=== PATIENT | male | born 1980 | race African-American/Black ===

== ENCOUNTER 2020-02-01 21:08 | Emergency (ER) | payer SELFPAY ==
[2020-02-01] MEDS ORDERED: Ketorolac 30 MG/ML SDV IM ONE (21:47)
[2020-02-01] MEDS ORDERED: Cyclobenzaprine 10 MG Tab PO ONE (21:47)
--- NOTE | 2020-02-01 21:51 | EDM.PDOC ---
ED HPI GENERAL MEDICAL PROBLEM - General Chief Complaint: Back Pain or Injury Stated Complaint: SIDE/HIP PAIN Time Seen by Provider: 02/01/20 21:11 Source of Information: Reports: Patient History Limitations: Reports: No Limitations - History of Present Illness INITIAL COMMENTS - FREE TEXT/NARRATIVE: Patient is a 39 year old male who complains of 7 day history of sharp back pain in the left lateral lower back and left hip. Has history of similar back problems. Exacerbating factors: movement. Alleviating factors: none. Radiation: left leg in sciatic distribution. Otherwise: (-) fever (-) recent trauma (-) weight loss (-) incontinence (-) bowel/bladder dysfunction (-) saddle anesthesia (-) history of cancer (-) weakness (-) paresthesias (-) immune compromise (-) recent back surgery or instrumentation. Has history of back surgery 14 years ago secondary to herniated disc. Went to chiropractor yesterday and had some relief after acupuncture, but pain returned today. Pt has been taking Tylenol. Is not on narcotics. REVIEW OF SYSTEMS: Other than the symptoms associated with the present events, the following is reported with regard to recent health: General: (-) fever. HENT: (-) congestion. Respiratory: (-) cough. Cardiovascular: (-) chest pain. GI: (-) abdominal pain. : (-) urinary complaints. Musculoskeletal: (-) other aches or pains. Endocrine: (-) generalized weakness. Neurological: (-) localized weakness. Skin: (-) rash PAST MEDICAL HISTORY: reviewed as per nursing notes SOCIAL HISTORY: reviewed as per nursing notes, MEDICATIONS: Per nurse's note ALLERGIES: Per nurse's note, reviewed by me PHYSICAL EXAMINATION: GENERALIZED APPEARANCE: well developed well nourished in mild to moderate painful distress sitting down. Pt ambulatory in ED VITAL SIGNS: Per nurse's note, reviewed by me SKIN: Warm, dry; (-) cyanosis; (-) rash. HEAD: (-) scalp swelling, EYES: (-) conjunctival pallor, (-) scleral icterus. ENMT: ; airway patent: (-) stridor; mucous membranes moist. NECK: supple (-) stiffness, CHEST AND RESPIRATORY: (-) rales, (-) rhonchi, (-) wheezes; breath sounds equal bilaterally. HEART AND CARDIOVASCULAR: (-) irregularity; (-) murmur, (-) gallop. ABDOMEN AND GI: Soft; (-) tenderness BACK: (-) scars (-)gross kyphosis (-) gross scoliosis. (-) step off or deformity (-) direct vertebral tenderness (+) left LS paravertebral tenderness ( +)left SI tenderness (+)left trochanteric tenderness. (+) able to flex, extend and lateral bend. EXTREMITIES: (-) deformity, (-) edema. 5/5+ strength LE bilaterally. 2+ DP. cap refill < 2 seconds. Good tone. (-) atrophy NEURO AND PSYCH: Awake, alert. Cranial nerves grossly intact; strength symmetric. sensation to thigh, lateral foot and 1st toe intact and equal bilaterally. 2+ DTR bilaterally. Gait steady . DIAGNOSTICS: EMERGENCY DEPARTMENT COURSE AND TREATMENT: Patient's condition remained stable during Emergency Department evaluation. Based on my history, physical exam, and diagnostic evaluation, the patient appears to have symptoms consistent with low risk back pain. There are no high risk signs or symptoms, no history of intravenous drug abuse, no history of cancer, no weakness, and no history of bowel or bladder incontinence. Vital signs show normal heart rate, BP, and oxygen saturation on room air and the patient has a normal neurologic exam. This is most likely a myofascial pain. The patient was able to ambulate in the ED without difficulty. Discharge precautions were given with instructions to return if increasing pain, weakness, fevers, or new symptoms. I encouraged follow-up with their primary care physician for repeat exam in 1-2 days. PLAN AND FOLLOW-UP: Patient received written and verbal instructions regarding this condition. Return to ED immediately with any new or worsening symptoms. Follow up to be arranged by patient with pcp in 1-2 days for further evaluation. Given discharge precautions. Patient expressed verbal understanding. Lower Back Pain Score (Numeric/FACES): 10 - Related Data Allergies Allergy/AdvReac Type Severity Reaction Status Date / Time No Known Allergies Allergy Verified 02/01/20 21:24 Home Meds: Home Meds Acetaminophen/oxyCODONE [Percocet 325-5 MG] 1 each PO Q6HR #10 tab 02/01/20 [Rx] Cyclobenzaprine [Flexeril] 10 mg PO TID #20 tab 02/01/20 [Rx] Ibuprofen [Motrin] 600 mg PO Q6H PRN #20 tab 02/01/20 [Rx] Lidocaine 5% [Lidoderm 5%] 1 patch TOP DAILY 6 Days #6 patch 02/01/20 [Rx] Past Medical History Musculoskeletal History: Reports: Back Pain, Chronic Endocrine/Metabolic History: Reports: Other (See Below) Other Endocrine/Metabolic History: borderline diabetic - Past Surgical History Musculoskeletal Surgical History: Reports: Other (See Below) Other Musculoskeletal Surgeries/Procedures:: back surgery for hernaited disc/ pinched nerves- unsure of what level Social & Family History - Family History Family Medical History: Noncontributory - Tobacco Use Smoking Status *Q: Never Smoker Second Hand Smoke Exposure: No - Recreational Drug Use Recreational Drug Use: No ED ROS GENERAL - Review of Systems Review Of Systems: See Below (see dictation) ED EXAM, GENERAL - Physical Exam Exam: See Below (see dictation) Course - Vital Signs Last Recorded V/S: Last Vital Signs Temp 97.8 F 02/01/20 21:14 Pulse 84 02/01/20 21:14 Resp 16 02/01/20 21:14 BP 126/66 02/01/20 21:14 Pulse Ox 96 02/01/20 21:14 - Orders/Labs/Meds Meds: Medications Discontinued Medications Generic Name Dose Route Start Last Admin Trade Name Freq PRN Reason Stop Dose Admin Cyclobenzaprine HCl 10 mg 02/01/20 21:47 02/01/20 21:52 Flexeril PO 02/01/20 21:48 10 mg ONETIME ONE Administration Ketorolac Tromethamine 30 mg 02/01/20 21:47 02/01/20 21:52 Toradol IM 02/01/20 21:48 30 mg ONETIME ONE Administration Departure - Departure Time of Disposition: 21:48 Disposition: Home, Self-Care 01 Condition: Good Clinical Impression: Back pain, Sciatica - Discharge Information *PRESCRIPTION DRUG MONITORING PROGRAM REVIEWED*: Not Applicable *COPY OF PRESCRIPTION DRUG MONITORING REPORT IN PATIENT JEF: Not Applicable Prescriptions: Acetaminophen/oxyCODONE [Percocet 325-5 MG] 1 each PO Q6HR #10 tab Cyclobenzaprine [Flexeril] 10 mg PO TID #20 tab Ibuprofen [Motrin] 600 mg PO Q6H PRN #20 tab PRN Reason: Pain Instructions: Acute Back Pain, Adult, Sciatica, [id number] Referrals: PCP,None [Primary Care Provider] - Lisa Gonzalez [Ordering Only Provider] - Forms: ED Department Discharge Additional Instructions: The following information is given to patients seen in the emergency department who are being discharged to home. This information is to outline your options for follow-up care. We provide all patients seen in our emergency department with a follow-up referral. The need for follow-up, as well as the timing and circumstances, are variable depending upon the specifics of your emergency department visit. If you don't have a primary care physician on staff, we will provide you with a referral. We always advise you to contact your personal physician following an emergency department visit to inform them of the circumstance of the visit and for follow-up with them and/or the need for any referrals to a consulting specialist. The emergency department will also refer you to a specialist when appropriate. This referral assures that you have the opportunity for follow-up care with a specialist. All of these measure are taken in an effort to provide you with optimal care, which includes your follow-up. Under all circumstances we always encourage you to contact your private physician who remains a resource for coordinating your care. When calling for follow-up care, please make the office aware that this follow-up is from your recent emergency room visit. If for any reason you are refused follow-up, please contact the [facility] Emergency Department at and asked to speak to the emergency department charge nurse. Sepsis Event Note - Evaluation Sepsis Screening Result: No Definite Risk - Focused Exam Vital Signs: Vital Signs Temp Pulse Resp BP Pulse Ox 02/01/20 21:14 97.8 F 84 16 126/66 96 Date Exam was Performed: 02/01/20 Time Exam was Performed: 21:53
== END 2020-02-01 22:14 | disposition home or self-care (01) ==
LOC: MW.ED 21:08
DX: M54.42 Lumbago with sciatica, left side (principal)
CPT/HCPCS: 96372; 99283; A9270; J1885

== ENCOUNTER 2020-02-05 21:36 | Emergency (ER) | payer SELFPAY ==
[2020-02-05] MEDS ORDERED: Ketorolac 30 MG/ML SDV IM ONE (21:58)
--- NOTE | 2020-02-05 23:07 | CT ---
INDICATION: Nontraumatic back pain with left-sided leg pain. COMPARISON: None available TECHNIQUE: CT examination of the lumbar spine is performed with spiral technique without contrast. 2 millimeter thick axial, sagittal and coronal reconstructions were made. Please note that all CT scans at this facility use dose modulation, iterative reconstruction, and/or weight-based dosing when appropriate to reduce radiation dose to as low as reasonably achievable. FINDINGS: : There is minimal scoliosis of the inferior lumbar spine convex towards the left. The vertebral bodies are normal in height and they are in anatomic alignment. There is no sign of fracture or subluxation. There is decreased AP canal diameter from L2 through L5, representing mild congenital narrowing, predisposing the patient to spinal stenosis from degenerative disease. T12-L1: Normal. L1-2: Normal. L2-3: Severe spinal stenosis produced by a moderate left paramedian disc bulge with posterior osteophytic ridging, resulting in prominent stenosis of the left lateral recess. There is probably compression of the left L3 nerve root in the lateral recess. Moderate left lateral disc bulging into the neural foramen, with posterior osteophytic ridging. This impinges upon the left L2 nerve root, but does not appear to compress the nerve root. Mild right lateral disc bulging into the neural foramina, without contact with the exiting nerve root. Moderate loss of disc height from disc degenerative disease. L3-4: Moderate spinal stenosis from mild diffuse disc bulging superimposed upon congenital narrowing. Moderate left and mild right lateral disc bulging into the neural foramina, without contact with the exiting nerve roots. L4-5: Severe spinal stenosis from congenital narrowing, moderate diffuse disc bulging, and mild ligamentum flavum hypertrophy. Moderate right lateral disc bulging into the neural foramina impinges upon the right L4 nerve root, without compression of the nerve root. Mild left lateral disc bulging into the neural foramina without impingement upon the exiting nerve root. Moderate disc degenerative disease. L5-S1: Moderate left lateral disc bulge with posterior osteophytic ridging, impinging upon the left S1 nerve root in the lateral recess, but without displacement or compression of the nerve root. Severe foraminal stenosis on the left from a combination of moderate lateral disc bulging, posterior osteophytic ridging, and left facet hypertrophy, appearing to efface the fat from around the left L5 nerve root. Mild right lateral disc bulging into the neural foramina with posterior osteophytic ridging, without contact with the exiting nerve root. Mild left facet arthropathy. The visualized abdominal viscera is normal in appearance. 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 IMPRESSION: Severe spinal stenosis at L2-3 from a moderate left paramedian disc bulge and posterior osteophytic ridging. Probable compression of the left L3 nerve root in the lateral recess. Severe spinal stenosis at L4-5. There appears to be prominent compression of the left L5 nerve root in the neural foramina as described above. Moderate spinal stenosis at L3-4. Lateral disc bulging into the neural foramina on the left at L2-3 and on the right at L4-5, coming into contact with the exiting nerve roots. Please note that all CT scans at this facility use dose modulation, iterative reconstruction, and/or weight-based dosing when appropriate to reduce radiation dose to as low as reasonably achievable. Dictated by Ismael Buitrago MD @ Feb 05 2020 10:53PM Signed by Dr. Ismael Buitrago @ Feb 05 2020 11:06PM
--- NOTE | 2020-02-06 00:15 | EDM.PDOC ---
ED HPI GENERAL MEDICAL PROBLEM - General Chief Complaint: Lower Extremity Injury/Pain Stated Complaint: LEG PAIN Time Seen by Provider: 02/05/20 21:46 Source of Information: Reports: Patient History Limitations: Reports: No Limitations - History of Present Illness INITIAL COMMENTS - FREE TEXT/NARRATIVE: Patient states he has numbness to the left leg and pain in the lower back. This is getting worse. Patient denies trauma Onset: Today Duration: Chronic Location: Reports: Back, Lower Extremity, Left Quality: Reports: Ache Severity: Mild Improves with: Reports: None Worsens with: Reports: None Associated Symptoms: Reports: No Other Symptoms left hip Pain Score (Numeric/FACES): 10 - Related Data Allergies Allergy/AdvReac Type Severity Reaction Status Date / Time No Known Allergies Allergy Verified 02/05/20 21:43 Home Meds: Home Meds Acetaminophen/oxyCODONE [Percocet 325-5 MG] 1 each PO Q6HR #10 tab 02/01/20 [Rx] Cyclobenzaprine [Flexeril] 10 mg PO TID #20 tab 02/01/20 [Rx] Ibuprofen [Motrin] 600 mg PO Q6H PRN #20 tab 02/01/20 [Rx] Lidocaine 5% [Lidoderm 5%] 1 patch TOP DAILY 6 Days #6 patch 02/01/20 [Rx] Past Medical History HEENT History: Reports: None Cardiovascular History: Reports: None Respiratory History: Reports: None Gastrointestinal History: Reports: None Genitourinary History: Reports: None Musculoskeletal History: Reports: Back Pain, Chronic Neurological History: Reports: None Psychiatric History: Reports: None Endocrine/Metabolic History: Reports: Other (See Below) Other Endocrine/Metabolic History: borderline diabetic Insulin Pump Model and Rn Access: None Hematologic History: Reports: None Immunologic History: Reports: None Oncologic (Cancer) History: Reports: None Dermatologic History: Reports: None - Infectious Disease History Infectious Disease History: Reports: None - Past Surgical History Head Surgeries/Procedures: Reports: None Musculoskeletal Surgical History: Reports: Other (See Below) Other Musculoskeletal Surgeries/Procedures:: back surgery for hernaited disc/ pinched nerves- unsure of what level Social & Family History - Family History Family Medical History: Noncontributory - Tobacco Use Smoking Status *Q: Never Smoker - Caffeine Use Caffeine Use: Reports: None - Recreational Drug Use Recreational Drug Use: No Review of Systems - Review of Systems Review Of Systems: See Below Constitutional: Reports: No Symptoms Eyes: Reports: No Symptoms Ears: Reports: No Symptoms Nose: Reports: No Symptoms Mouth/Throat: Reports: No Symptoms Respiratory: Reports: No Symptoms Cardiovascular: Reports: No Symptoms GI/Abdominal: Reports: No Symptoms Genitourinary: Reports: No Symptoms Musculoskeletal: Reports: No Symptoms Skin: Reports: No Symptoms Neurological: Reports: No Symptoms Psychiatric: Reports: No Symptoms ED EXAM, GENERAL - Physical Exam Exam: See Below Exam Limited By: No Limitations General Appearance: Alert, WD/WN, No Apparent Distress Ears: Normal External Exam, Normal Canal, Normal TMs Ear Exam: Bilateral Ear: Auricle Normal, Canal Normal Nose: Normal Inspection, Normal Mucosa Throat/Mouth: Normal Inspection Head: Atraumatic, Normocephalic Neck: Normal Inspection, Supple Respiratory/Chest: No Respiratory Distress, Lungs Clear Cardiovascular: Normal Peripheral Pulses, Regular Rate, Rhythm GI/Abdominal: Normal Bowel Sounds, Soft, Non-Tender Back Exam: Normal Inspection, Full Range of Motion Extremities: Normal Inspection, Normal Range of Motion, No Pedal Edema, Limited Range of Motion, Other (Pain in the back. Going down the leg) Neurological: Alert Psychiatric: Normal Affect, Normal Mood Skin Exam: Warm, Dry Course - Vital Signs Text/Narrative:: 39-year-old male presents emergency room which appears to be sciatica. Patient states he has back surgery in the past does not know much about the outcome. Patient's has no acute trauma. Last Recorded V/S: Last Vital Signs Temp 97.5 F 02/05/20 21:40 Pulse 92 02/05/20 21:40 Resp 18 02/05/20 21:40 BP 116/90 02/05/20 21:40 Pulse Ox 98 02/05/20 21:40 - Orders/Labs/Meds Meds: Medications Discontinued Medications Generic Name Dose Route Start Last Admin Trade Name Lobitoq PRN Reason Stop Dose Admin Ketorolac Tromethamine 30 mg 02/05/20 21:58 02/05/20 22:05 Toradol IM 02/05/20 21:59 30 mg ONETIME ONE Administration Departure - Departure Time of Disposition: 00:19 Disposition: Home, Self-Care 01 Condition: Good Clinical Impression: Sciatica - Discharge Information Instructions: Sciatica, [id number] Referrals: PCP,None [Primary Care Provider] - Sepsis Event Note - Evaluation Sepsis Screening Result: No Definite Risk - Focused Exam Vital Signs: Vital Signs Temp Pulse Resp BP Pulse Ox 02/05/20 21:40 97.5 F 92 18 116/90 98 Date Exam was Performed: 02/06/20 Time Exam was Performed: 00:10
== END 2020-02-06 00:46 | disposition home or self-care (01) ==
LOC: MW.ED 21:36
DX: M54.42 Lumbago with sciatica, left side (principal); Z79.899 Other long term (current) drug therapy
CPT/HCPCS: 72131; 96372; 99284; J1885; 99283

== ENCOUNTER 2022-07-05 13:45 | Emergency (ER) | payer BC ==
[2022-07-05] MEDS ORDERED: Acetaminophen 500 MG Tab PO ONE (15:36)
[2022-07-05] MEDS ORDERED: Ibuprofen 800 MG Tab PO ONE (15:36)
== END 2022-07-05 16:03 | disposition home or self-care (01) ==
LOC: MW.ED 13:45
DX: U07.1 COVID-19 (principal); E11.9 Type 2 diabetes mellitus without complications; Z86.16 Personal history of COVID-19
CPT/HCPCS: 99283; 99284; U0002

== ENCOUNTER 2022-10-15 13:53 | Emergency (ER) | payer BC ==
[2022-10-15 15:25] LABS: CARBON DIOXIDE,CO2 25.7 mmol/L (21.0-32.0); POTASSIUM,K 2.8 mmol/L (3.5-5.1)
[2022-10-15] MEDS ORDERED: Potassium Chloride 20 MEQ Tab.ER PO ONE (16:10)
== END 2022-10-15 16:46 | disposition home or self-care (01) ==
LOC: MW.ED 13:53
DX: E87.6 Hypokalemia (principal); E11.9 Type 2 diabetes mellitus without complications
CPT/HCPCS: 36415; 80053; 84484; 85025; 93005; 99284; A9270

== ENCOUNTER 2022-11-29 20:18 | Emergency (ER) | payer BC ==
[2022-11-29] MEDS ORDERED: Lactated Ringers 1,000 ML IV ONE (22:03)
[2022-11-29 23:02] LABS: CARBON DIOXIDE,CO2 26.9 mmol/L (21.0-32.0); POTASSIUM,K 3.4 mmol/L (3.5-5.1)
[2022-11-29] MEDS ORDERED: Potassium Chloride 10% 20 MEQ/15 ML Soln 30 ML UD Cup PO ONE (23:40)
== END 2022-11-30 00:04 | disposition home or self-care (01) ==
LOC: MW.ED 20:18
DX: E11.649 Type 2 diabetes mellitus with hypoglycemia without coma (principal); E86.0 Dehydration; E87.6 Hypokalemia; Z86.16 Personal history of COVID-19
CPT/HCPCS: 36415; 80048; 85025; 99283; A9270; J7120

== ENCOUNTER 2022-11-30 10:24 | Emergency (ER) | payer BC ==
[2022-11-30] MEDS ORDERED: Sodium Chloride 0.9% 10 ML Syringe FLUSH PRN (10:47)
[2022-11-30] MEDS ORDERED: Sodium Chloride 0.9% 2.5 ML Syringe FLUSH PRN (10:47)
[2022-11-30 11:33] LABS: CARBON DIOXIDE,CO2 27.6 mmol/L (21.0-32.0); POTASSIUM,K 3.5 mmol/L (3.5-5.1)
== END 2022-11-30 12:32 | disposition home or self-care (01) ==
LOC: MW.ED 10:24
DX: R53.81 Other malaise (principal); E11.9 Type 2 diabetes mellitus without complications
CPT/HCPCS: 36415; 80053; 83690; 83735; 99284; J3490

== ENCOUNTER 2025-05-19 06:12 | Emergency (ER) | payer BC ==
[2025-05-19 08:06] LABS: MEAN PLATELET VOLUME 10.7 fL (9.4-12.4); NRBC ABSOLUTE 0.00 K/uL (0.00-0.02); NRBC PERCENT 0.0 /100WBC (0.0-0.2); PLATELET COUNT,PLT 215 K/uL (150-400); RED BLOOD CELL COUNT 4.85 M/uL (4.52-5.90); WHITE BLOOD CELL COUNT,WBC 6.01 K/uL (3.9-11.3)
[2025-05-19 08:40] LABS: CORONAVIRUS COVID-19 NAA NEGATIVE (NEGATIVE); INFLUENZA A NAA NEGATIVE (NEGATIVE); INFLUENZA B NAA NEGATIVE (NEGATIVE)
[2025-05-19 08:41] LABS: A/G RATIO 0.9 (0.9-1.6); ALANINE AMINOTRANSFERASE,ALT 25.0 IU/L (14-63); ASPARTATE AMNIOTRANSFERASE,AST 21.0 IU/L (15-37); BILIRUBIN TOTAL 0.3 mg/dL (0.2-1.0); BLOOD UREA NITROGEN,BUN 17.0 mg/dL (7.0-18.0); CARBON DIOXIDE,CO2 31.2 mmol/L (21.0-32.0); CHLORIDE,CL 104.0 mmol/L (98-107); CREATININE 1.2 mg/dL (0.8-1.3); EST CRCL DRUG DOSING (CG) 68.67 mL/min; GLUCOSE RANDOM 109.0 mg/dL (74-106); POTASSIUM,K 3.9 mmol/L (3.5-5.1); PROTEIN TOTAL,TP 7.6 g/dL (6.4-8.2); SODIUM,NA 143.0 mmol/L (136-148)
[2025-05-19 08:50] LABS: ESTIMATED GFR 75.0 mL/min (>60)
== END 2025-05-19 10:58 | disposition home or self-care (01) ==
LOC: MW.ED 06:12
DX: J06.9 Acute upper respiratory infection, unspecified (principal); B97.89 Other viral agents as the cause of diseases classified elsewhere; I10 Essential (primary) hypertension; E11.9 Type 2 diabetes mellitus without complications
CPT/HCPCS: 36415; 71046; 71046-26; 80053; 85027; 87636; 99283

== ENCOUNTER 2025-08-24 07:35 | Emergency (ER) | payer BC | END 2025-08-24 09:00 | disposition home or self-care (01) | LOC: MW.ED 07:35 | DX: B34.9 Viral infection, unspecified (principal); E11.9 Type 2 diabetes mellitus without complications | CPT/HCPCS: 82947; 87651; 99283 ==